=== PATIENT | female | born 1955 | race Caucasian/White ===

== ENCOUNTER → 2017-12-05 07:38 | Outpatient (CLI) | payer OTHER, SELFPAY ==
--- NOTE | 2017-12-05 08:04 | US_ITS ---
STUDY: ABDOMINAL ULTRASOUND - RIGHT UPPER QUADRANT REASON FOR VISIT: Female, 62 years old. Epigastric pain. Right upper and left upper quadrant pain as well. TECHNIQUE: Ultrasound evaluation of the right upper quadrant was performed with real-time and static morgan-scale imaging. TECHNICAL QUALITY: Adequate. COMPARISON: None. FINDINGS: Liver: The liver measures 13.8 cm. There is normal echogenicity of the liver. The bile ducts are within normal limits. There is hepatic color flow. The direction of portal flow is hepatopetal. There is no demonstrated mass lesion. Gallbladder: Normal distended gallbladder. The gallbladder wall measures 2.1 mm. There is a negative sonographic Matthew's sign. There is no pericholecystic fluid. There are no gallstones. Common Bile Duct (C.B.D.): The common bile duct measures 2.3 mm. Pancreas: Normal size of the head, body of the pancreas. The tail portion is obscured due to overlying bowel gas. There is normal echogenicity of the pancreas. There is no demonstrated pancreatic mass or cyst. Right Kidney: Normal size of the right kidney. The right kidney measures 11.6 cm x 4.7 cm x 5.1 cm. Normal renal cortex. The right cortex measures 1.9 cm. There is a 2.3 cm x 1.8 cm x 1.9 cm renal cyst. There is no right hydronephrosis. IMPRESSION: Right renal cyst. Electronically Signed: Kelvin Vargas MD at 15:49 EDT Tel [phone], Service support , STUDY: ABDOMINAL ULTRASOUND -left UPPER QUADRANT REASON FOR VISIT: Female, 62 years old. Left upper quadrant pain. TECHNIQUE: Ultrasound evaluation of the left upper quadrant was performed with real-time and static morgan-scale imaging. TECHNICAL QUALITY: Adequate. COMPARISON: None. FINDINGS: Spleen: The spleen measures 8.1 cm x 3.9 cm x 3.8 cm. It is unremarkable. Left Kidney: Normal size of the left kidney. The left kidney measures 10.7 signed by 4.6 x 4.9 cm. Normal renal cortex. The left cortex measures 2.1 cm. There is a 1.7 cm x 1.2 cm x 1.3 cm cyst. Moderate degree of left hydronephrosis. At least 3 intrarenal calculi are seen. The largest measures 9 mm x 7 mm x 7 mm. US/Abdomen Limited IMPRESSION: Moderate degree of left hydronephrosis. Left intrarenal calculi. Left renal cyst. Electronically Signed: Kelvin Vargas MD at 15:50 EDT Tel [phone], Service support ,
--- NOTE | 2017-12-05 08:11 | US_ITS ---
STUDY: ABDOMINAL ULTRASOUND - RIGHT UPPER QUADRANT REASON FOR VISIT: Female, 62 years old. Epigastric pain. Right upper and left upper quadrant pain as well. TECHNIQUE: Ultrasound evaluation of the right upper quadrant was performed with real-time and static morgan-scale imaging. TECHNICAL QUALITY: Adequate. COMPARISON: None. FINDINGS: Liver: The liver measures 13.8 cm. There is normal echogenicity of the liver. The bile ducts are within normal limits. There is hepatic color flow. The direction of portal flow is hepatopetal. There is no demonstrated mass lesion. Gallbladder: Normal distended gallbladder. The gallbladder wall measures 2.1 mm. There is a negative sonographic Matthew's sign. There is no pericholecystic fluid. There are no gallstones. Common Bile Duct (C.B.D.): The common bile duct measures 2.3 mm. Pancreas: Normal size of the head, body of the pancreas. The tail portion is obscured due to overlying bowel gas. There is normal echogenicity of the pancreas. There is no demonstrated pancreatic mass or cyst. Right Kidney: Normal size of the right kidney. The right kidney measures 11.6 cm x 4.7 cm x 5.1 cm. Normal renal cortex. The right cortex measures 1.9 cm. There is a 2.3 cm x 1.8 cm x 1.9 cm renal cyst. There is no right hydronephrosis. IMPRESSION: Right renal cyst. Electronically Signed: Kelvin Vargas MD at 15:49 EDT Tel [phone], Service support , STUDY: ABDOMINAL ULTRASOUND -left UPPER QUADRANT REASON FOR VISIT: Female, 62 years old. Left upper quadrant pain. TECHNIQUE: Ultrasound evaluation of the left upper quadrant was performed with real-time and static morgan-scale imaging. TECHNICAL QUALITY: Adequate. COMPARISON: None. FINDINGS: Spleen: The spleen measures 8.1 cm x 3.9 cm x 3.8 cm. It is unremarkable. Left Kidney: Normal size of the left kidney. The left kidney measures 10.7 signed by 4.6 x 4.9 cm. Normal renal cortex. The left cortex measures 2.1 cm. There is a 1.7 cm x 1.2 cm x 1.3 cm cyst. Moderate degree of left hydronephrosis. At least 3 intrarenal calculi are seen. The largest measures 9 mm x 7 mm x 7 mm. US/Spleen IMPRESSION: Moderate degree of left hydronephrosis. Left intrarenal calculi. Left renal cyst. Electronically Signed: Kelvin Vargas MD at 15:50 EDT Tel [phone], Service support ,
== END ==
PROVIDERS: Family Provider Internal Medicine; PCP Internal Medicine; Visit Provider Clinical Nurse Specialist
DX: N13.2 Hydronephrosis with renal and ureteral calculous obstruction (principal)
CPT/HCPCS: 76705

== ENCOUNTER → 2017-12-26 07:43 | Outpatient (CLI) | payer OTHER, SELFPAY ==
--- NOTE | 2017-12-26 07:43 | DT_ITS ---
This patient was seen during an EMR downtime December 24, 2017 - December 31, 2017. This patient may have a combination of paper and electronic documentation or all paper documentation. All documentation is viewable within the e-chart portion of [employer] for each patient visit.
--- NOTE | 2017-12-26 09:46 | CT_ITS ---
STUDY: CT ABDOMEN AND PELVIS WITH CONTRAST REASON FOR EXAM: Female, 62 years old. ABDOMINAL PAIN mid abdomen x 18months.Prev umbilical hernia repair and lt ureter reattached at kidney RADIATION DOSAGE (If Supplied By Facility): CTDIvol = ( 15.52 ) mGy, DLP = ( 1004.76 ) mGycm TECHNIQUE: Transaxial images were obtained from the dome of the diaphragm to the symphysis pubis with oral contrast. 100ml ml of Isovue 300 contrast was administered. Sagittal and coronal images were reconstructed. Individualized dose optimization techniques were used for this CT. COMPARISON: 07.21.09 FINDINGS: The visualized lung bases are unremarkable. The visualized portions of the heart are within normal limits. Normal liver. Normal gallbladder and extrahepatic biliary system. Normal spleen. Normal pancreas. Normal bilateral adrenal glands. 24 mm hypodensity of the right kidney. Stable hypodensity of the left kidney. This is inferior and measures 54 mm and the left kidney. 2 cm enlarged hypodensity of the superior Left kidney. Multiple bilateral left renal calculi. These are nonobstructive. Largest stone in the left kidney is 3.4 mm. This is noted in the mid kidney. Normal visualized stomach. Normal small intestine. There are multiple colonic diverticula consistent with diverticulosis. There is non-visualization of the appendix. Normal abdominal aorta. Normal inferior vena cava. Normal retroperitoneum. Normal urinary bladder. Normal visualized uterus. Normal abdominal wall. There are diffuse degenerative changes of the visualized lumbar spine. There is scoliosis of the lumbar spine. CT/Abdomen/Pelvis WITH Contrast IMPRESSION: Enlargement of the right renal cyst. Enlargement of the superior left renal cyst. There are multiple diverticuli of the colon. There is diverticulosis but no radiographic signs for diverticulitis. Non obstructive left renal parenchymal stones. Electronically Signed: Jose Bowling MD at 16:39 EDT , Service support ,
[2018-01-06 14:47] LABS: CREATININE FINGERSTICK 0.82 mg/dL (0.55-1.02)
== END ==
PROVIDERS: Family Provider Internal Medicine; PCP Internal Medicine; Visit Provider Surgery
DX: R10.9 Unspecified abdominal pain (principal)
CPT/HCPCS: 74177; Q9967

== ENCOUNTER → 2018-07-10 15:19 | Outpatient (CLI) | payer OTHER, SELFPAY ==
--- NOTE | 2018-07-10 15:21 | BI_ITS ---
MAMMOGRAPHY - BILATERAL SCREENING REASON FOR EXAM: Female, 62 years old. Routine annual screening examination. PERTINENT HISTORY: Aunt with breast cancer. Occasional left breast tenderness. TECHNIQUE: Digital bilateral breast marilee (3D mammographic acquisition) in the CC and MLO projections. 2-D mediolateral oblique (MLO) and craniocaudad (CC) views of both breasts were obtained. CAD: Full Field Digital Mammography with Computer Added Detection was performed. COMPARISON: Comparison is made with prior examination dated February 27, 2011 and December 29, 2016. FINDINGS: Breast Composition: The breasts are almost entirely fatty. There are no dominant masses or suspicious calcifications. Stable small bilateral benign appearing axillary lymph nodes. No other significant abnormalities are identified. There has been no significant change since the prior study. BI/SCREENING MAMM (CAD), BILAT IMPRESSION: Stable bilateral screening mammogram. Yearly follow-up mammogram recommended. (A) ASSESSMENT CATEGORY: BIRADS Category 2: Benign. A letter regarding these results will be sent to the patient by the facility within 30 days. Approximately 10% of breast cancers are not detected by mammography. A normal mammogram should not delay biopsy of a clinically suspicious abnormality. [id number] Electronically Signed: Kelvin Vargas MD at 14:45 EST Tel [phone], Service support ,
== END ==
PROVIDERS: Family Provider Internal Medicine; PCP Internal Medicine; Visit Provider Internal Medicine
DX: Z12.31 Encounter for screening mammogram for malignant neoplasm of breast (principal)
CPT/HCPCS: 77063; 77067

== ENCOUNTER 2019-05-12 12:05 | Emergency (ER) | payer MEDICARE, OTHER, SELFPAY ==
[2019-05-12 12:05] VITALS: BP 150/110; PULSE 104; RESP 20; TEMP 36.4; O2SAT 96; BMI 32.3
--- NOTE | 2019-05-12 13:10 | ED.VISSUMM ---
- ER Visit Summary Date of Service: 05/12/19 Chief Complaint: Left Distal forearm cat bite History of Present Illness: The patient is a 63 F. History of kidney stones. Tetanus up-to-date. Her cat one after another cat she went to grab it and the cat bit her on her left forearm. This occurred about 1 to 2 hours ago. She said she had postop bleeding that resolved. She denies any other injuries. Physical Examination: Older female no acute distress vital signs stable afebrile. H EENT exam unremarkable. Lungs clear to auscultation. Heart regular rhythm no murmur. Abdomen soft nontender. Extremities moves all 4. Neurovascular intact. Dorsum left forearm and on radial side there are puncture wounds from cat bites. There is a hematoma on the dorsum. The left hand is neurovascular intact with normal radial and ulnar pulse. Normal cap refill. Normal 5 out of 5 motor strength and sensation. Normal range of motion all digits of the left hand she is able to open close and make a fist without any difficulty. There is a hematoma in the distal forearm but there is no cellulitis at this time. There is no lymphangitic streaking. There is no bony deformity. Otherwise exam unremarkable. Test Results: None Emergency Department Course and Treatment: Treated with p.o. Augmentin. Her tetanus is already up-to-date. Nurses will clean and dress the wound. She was instructed to ice and elevate. Tylenol Motrin for pain. Return immediately for any signs of infection. Treatment Plan: Placed on Augmentin 875 twice daily for 7 days. Ice and elevate. Return if cellulitis is seen. Disposition: Discharge Impression: Left forearm cat bite with hematoma This note was generated with [employer] dictation software. It may contain incorrect words, spelling, and punctuation that were not noted in review of the chart prior to signing ED Disposition - Plan for ED Patient: Referrals: Li Liu MD [Primary Care Provider] -
--- NOTE | 2019-05-12 13:15 | ED.DEP ---
ED Disposition - Plan for ED Patient: Disposition: Home or Assisted Living Instructions: Cat Bite Prescriptions: Amox/Clavulanate Tablet [Augmentin Tablet] 875 mg PO Q12H #14 tab Prescription Printed Referrals: Li Liu MD [Primary Care Provider] - 3-5 Days if not improving Additional Instructions: Ice and elevate your left wrist to decrease pain and swelling. Tylenol Motrin for pain. Augmentin 1 pill twice a day to try to prevent cat bite infection. Clean daily with soap water peroxide and water and apply antibiotic ointment and keep covered. Return immediately if fever, redness or red streaks or pus. Any signs of infection need to be further evaluated.
[2019-05-12] MEDS: Amox/Clavulanate 875 MG Tablet PO (13:17)
[2019-05-12 13:24] VITALS: RESP 14
== END 2019-05-12 13:26 | disposition home or self-care (01) ==
PROVIDERS: Emergency Provider Emergency Medicine; Family Provider Internal Medicine; PCP Internal Medicine
DX: S50.872A Other superficial bite of left forearm, initial encounter (principal); S50.12XA Contusion of left forearm, initial encounter; W55.01XA Bitten by cat, initial encounter; Y93.89 Activity, other specified
CPT/HCPCS: 99283

== ENCOUNTER → 2019-09-27 07:51 | Outpatient (CLI) | payer MEDICARE, OTHER, SELFPAY ==
--- NOTE | 2019-09-27 07:55 | BI_ITS ---
MAMMOGRAPHY - BILATERAL SCREENING REASON FOR EXAM: Female, 64 years old. Routine annual screening examination. PERTINENT HISTORY: Aunt with breast cancer. TECHNIQUE: Digital bilateral breast francisca (3D mammographic acquisition) in the CC and MLO projections. 2-D mediolateral oblique (MLO) and craniocaudad (CC) views of both breasts were obtained. CAD: Full Field Digital Mammography with Computer Added Detection was performed. COMPARISON: Comparison is made with prior examination dated July 10, 2018 and December 29, 2016. FINDINGS: Breast Composition: The breasts are almost entirely fatty. There are no dominant masses or suspicious calcifications. Stable small benign-appearing bilateral axillary lymph nodes. No other significant abnormalities are identified. There has been no significant change since the prior study. BI/SCREEN MAMM (CAD) W/FRANCISCA BILAT IMPRESSION: Stable bilateral screening mammogram. Yearly follow-up mammogram recommended. (A) ASSESSMENT CATEGORY: BIRADS Category 2: Benign. A letter regarding these results will be sent to the patient by the facility within 30 days. Approximately 10% of breast cancers are not detected by mammography. A normal mammogram should not delay biopsy of a clinically suspicious abnormality. [id number] Electronically Signed: Kelvin Vargas, at 8:47 EDT , Service support ,
== END ==
PROVIDERS: PCP Internal Medicine; Referring Provider Internal Medicine; Visit Provider Internal Medicine
DX: Z12.31 Encounter for screening mammogram for malignant neoplasm of breast (principal)
CPT/HCPCS: 77063; 77067

== ENCOUNTER 2024-02-20 17:30 | Outpatient (RCR) | payer SELFPAY | END 2024-02-20 23:59 | LOC: NS 17:30 | PROVIDERS: PCP Internal Medicine | DX: Z71.3 Dietary counseling and surveillance (principal) ==

== ENCOUNTER 2024-02-25 12:11 | Outpatient (RCR) | payer SELFPAY | END 2024-03-22 23:59 | LOC: NS 12:11 | PROVIDERS: PCP Internal Medicine | DX: Z71.3 Dietary counseling and surveillance (principal) ==